=== PATIENT | male | born 1950 | race Caucasian/White ===

== ENCOUNTER → 2017-03-09 | Outpatient (CLI) | payer MEDICARE, MEDICAID ==
--- NOTE | 2017-03-09 10:25 | RADIOLOGY REPORT (SQ) ---
EXAM DESCRIPTION: CT LUNG CANCER SCREENING COMPLETED DATE/TIME: 03/09/2017 8:51 am REASON FOR STUDY: Z12.2 ENCOUNTER FOR SCREENING FOR MALIGNANT NEOPLASM OF RESPIRATORY ORGANS Z00.01 ENCOUNTER FOR GENERAL ADULT MEDICAL EXAM W ABNORMAL F J44.9 CHRONIC OBSTRUCTIVE PULMONARY DISEASE, UNSPECIFIED Z12.2 ENCNTR SCREEN FOR MALIGNANT NEOPLASM OF RESPIRATORY OR Has the patient had a Chest CT scan within the past year? No Was the patient offered tobacco cessation counseling? Yes Was the patient engaged in shared decision making for this test? Yes Does the patient have signs or symptoms of Lung Cancer? No Is the patient a smoker? Yes How many packs per year? 365 How many years since quitting smoking? Not applicable Patients age: 66 COMPARISON: Prior CT chest exams 03/03/2009, 10/04/2011, 04/20/2014, 08/11/2014, 06/14/2015 TECHNIQUE: Low Dose CT scan performed of the chest without intravenous contrast for purposes of scre ening for lung cancer. Images reviewed with lung, soft tissue and bone windows. Reconstructed coron al and sagittal MPR images reviewed. All images stored on PACS. All CT scanners at this facility use dose modulation, iterative reconstruction, and/or weight based d osing when appropriate to reduce radiation dose to as low as reasonably achievable (ALARA). [facility]: Dose Right [facility]: CareDose [facility]: Dose Right [facility]: Teradose 4D [facility]: [employer] RADIATION DOSE: Up-to-date CT equipment and radiation dose reduction techniques were employed. CTDIv ol: 2.1 mGy. DLP: 92 mGy-cm. mGy. . LIMITATIONS: No technical limitations. FINDINGS: LUNG NODULES: There is biapical pleural-parenchymal scarring, stable compared to studies dating back to 2009. On axial image 141/598, of 1.6 x 0.7 cm solid and alveolar density is present which is bandlike scarr ing on coronal image 58, this finding is similar compared to studies dating back to 2013. REMAINING LUNGS AND PLEURA: No pleural effusions or calcifications. No pneumothorax. Advanced c hanges of obstructive lung disease with enlarged airspaces most numerous in the upper lobes bilateral ly. HILAR AND MEDIASTINAL STRUCTURES: No identified masses. No abnormal nodes. HEART AND VASCULAR STRUCTURES: No aortic aneurysm. No pericardial effusion. No cardiac devices. CORONARY ARTERY CALCIFICATIONS: No significant calcifications. UPPER ABDOMEN, THYROID, BONES, OTHER SOFT TISSUES: No significant findings. IMPRESSION: BENIGN FINDINGS IN THE LUNGS. Obstructive lung disease LUNGRADS: LUNGRADS: 2 BENIGN APPEARANCE OR BEHAVIOR. NODULES WITH A VERY LOW LIKELIHOOD OF BECOMING A CLINICALLY ACTIVE CANCER DUE TO SIZE OR LACK OF GROWTH. MODIFIER: NONE. RECOMMENDATION: Continue annual screening with LDCT in 12 months. COMMENT: CRITERIA: Solid nodule(s): < 6 mm; new < 4 mm. Part solid nodule(s): < 6 mm total diameter on baseline screening. Non solid nodule(s) (GGN): < 20 mm OR ? 20 and unchanged or slowly growing. Category 3 or 4 modules unchanged for ? 3 months. TECHNICAL DOCUMENTATION: JOB ID: [id number] Quality ID # [id number]: Final reports with documentation of one or more dose reduction techniques (e.g., Au tomated exposure control, adjustment of the mA and/or kV according to patient size, use of iterative reconstruction technique) 2010 [employer]
== END ==
LOC: RAD 08:23
PROVIDERS: ATTEND Internal Medicine
DX: Z12.2 Encounter for screening for malignant neoplasm of respiratory organs (principal); F17.218 Nicotine dependence, cigarettes, with other nicotine-induced disorders
CPT/HCPCS: G0297

== ENCOUNTER → 2018-05-17 | Outpatient (CLI) | payer MEDICARE, MEDICAID ==
--- NOTE | 2018-05-17 17:02 | RADIOLOGY REPORT (SQ) ---
EXAM DESCRIPTION: FOOT BILATERAL 2 VIEWS COMPLETED DATE/TIME: 05/17/2018 2:01 pm REASON FOR STUDY: BILATERAL FOOT PAIN M79.671 PAIN IN RIGHT FOOT COMPARISON: None. NUMBER OF VIEWS: Two views. TECHNIQUE: AP and lateral radiographic images acquired of the right and left foot. LIMITATIONS: None. FINDINGS: MINERALIZATION: Normal. BONES: No acute fracture or dislocation. No worrisome bone lesions. JOINTS: Marked degenerative joint changes in the right 1st metatarsal-phalangeal joint. SOFT TISSUES: No soft tissue swelling. No foreign body. OTHER: No other significant finding. IMPRESSION: Degenerative joint disease. No acute findings in either foot. TECHNICAL DOCUMENTATION: JOB ID: [id number] [employer]- All Rights Reserved Reading location - IP/workstation name: [email or web address]
== END ==
LOC: OD 13:42
PROVIDERS: ATTEND Internal Medicine
DX: M79.671 Pain in right foot (principal); M79.672 Pain in left foot

== ENCOUNTER 2019-01-12 06:28 | Emergency (ER) | payer MEDICARE, MEDICAID ==
[2019-01-12 07:12] LABS: ABSOLUTE EOSINOPHILS # (AUTO) 0.1 10^3/uL (0.0-0.6); ABSOLUTE LYMPHOCYTES (AUTO) 1.1 10^3/uL (0.5-4.7); ABSOLUTE MONOCYTES (AUTO) 1.2 10^3/uL (0.1-1.4); ABSOLUTE NEUT (AUTO) 8.6 10^3/uL (1.7-8.2); BASOPHILS % (AUTO) 0.2 % (0-2); EOSINOPHILS % (AUTO) 0.6 % (0-6); HEMATOCRIT 30.7 % (37.9-51.0); HEMOGLOBIN 10.5 g/dL (13.5-17.0); LYMPHOCYTES % (AUTO) 10.1 % (13-45); MEAN CORPUSCULAR HEMOGLOBIN 32.3 pg (27.0-33.4); MEAN CORPUSCULAR HGB CONC 34.1 g/dL (32.0-36.0); MEAN CORPUSCULAR VOLUME 95 fl (80-97); MONOCYTES % (AUTO) 10.8 % (3-13); PLATELET COUNT 187 10^3/uL (150-450); RED BLOOD COUNT 3.24 10^6/uL (4.35-5.55); RED CELL DISTRIBUTION WIDTH 16.3 % (11.5-14.0); SEGMENTED NEUTROPHILS % (AUTO) 78.3 % (42-78); TOTAL CELLS COUNTED % (AUTO) 100 %; WHITE BLOOD COUNT 10.9 10^3/uL (4.0-10.5)
[2019-01-12 07:28] LABS: ALBUMIN 3.9 g/dL (3.5-5.0); ALKALINE PHOSPHATASE 88 U/L (38-126); ANION GAP 10 (5-19); ASPARTATE AMINO TRANSFERASE 19 U/L (17-59); BLOOD UREA NITROGEN 23 mg/dL (7-20); CALCIUM 9.7 mg/dL (8.4-10.2); CARBON DIOXIDE 27 mmol/L (22-30); CHLORIDE 102 mmol/L (98-107); CREATINE KINASE 110 U/L (55-170); GLUCOSE 128 mg/dL (75-110); TOTAL PROTEIN 6.9 g/dL (6.3-8.2)
[2019-01-12 07:32] LABS: BILIRUBIN,TOTAL < 0.1 mg/dL (0.2-1.3)
--- NOTE | 2019-01-12 07:59 | ER Document Report ---
Entered by DAISY NEWMAN SCRIBE 01/12/19 0656 Acting as scribe for:DEBI TAYLOR MD ED GI/ - General Chief Complaint: Abdominal Pain Stated Complaint: ABDOMINAL PAIN Time Seen by Provider: 01/12/19 06:43 Primary Care Provider: URVASHI RICE MD [Primary Care Provider] - Follow up in 3-5 days Mode of Arrival: Ambulatory Information source: Patient Notes: Patient is a 68 year old male that presents to the emergency department today with complaints of abdominal pain and low back pain since last night. Patient reports being unable to sleep last night stating he was "up and down" all night secondary to pain. Patient filled a prescription for #20 4mg Dilaudid on 01/10/2019 for his chronic pain. Patient has chronic arthritic pain which she states is different from the pain he has been having, although he states he got this prescription from his PCP for the pain that he is being seen for today. Patient states that this pain only began yesterday. He also complains of pain in his low back, that is not present now, but occurs when he lays down at night. Patient is a poor historian, history is confusing, and difficult to obtain. TRAVEL OUTSIDE OF THE [place] IN LAST 30 DAYS: No - Related Data Allergies/Adverse Reactions: Sulfa (Sulfonamide Antibiotics) Allergy (Verified 01/12/19 06:37) Past Medical History - General Information source: Patient - Social History Smoking Status: Former Smoker Cigarette use (# per day): No Frequency of alcohol use: None Drug Abuse: None Lives with: Family Family History: Reviewed & Not Pertinent Patient has suicidal ideation: No Patient has homicidal ideation: No - Past Medical History Cardiac Medical History: Reports: Hx Hypertension Pulmonary Medical History: Reports: Hx COPD Renal/ Medical History: Reports: Hx Kidney Stones Musculoskeletal Medical History: Reports Hx Arthritis - Chronic pain, takes dilaudid - Immunizations Hx Diphtheria, Pertussis, Tetanus Vaccination: Yes Review of Systems - Review of Systems Constitutional: No symptoms reported EENT: No symptoms reported Cardiovascular: No symptoms reported Respiratory: No symptoms reported Gastrointestinal: See HPI, Abdominal pain Genitourinary: No symptoms reported Male Genitourinary: No symptoms reported Musculoskeletal: See HPI, Back pain Skin: No symptoms reported Hematologic/Lymphatic: No symptoms reported Neurological/Psychological: No symptoms reported -: Yes All other systems reviewed and negative Physical Exam - Vital signs Vitals: Temp Pulse Resp BP Pulse Ox 97.9 F 109 H 27 H 214/92 H 94 01/12/19 06:29 01/12/19 06:29 01/12/19 06:29 01/12/19 06:29 01/12/19 06:29 - Notes Notes: Physical Exam: General: Alert. HEENT: Normocephalic. Atraumatic. PERRL. Extraocular movements intact. Oropharynx clear. Neck: Supple. Non-tender. Respiratory: No respiratory distress. Clear and equal breath sounds bilaterally. Cardiovascular: Regular rate and rhythm. Abdominal: Right lower quadrant tenderness with palpation. No distension. Normal Bowel Sounds. Back: No gross abnormalities. Extremities: Moves all four extremities. Upper extremities: Normal inspection. Normal ROM. Lower extremities: Normal inspection. No edema. Normal ROM. Neurological: Normal cognition. AAOx4. Normal speech. Intention tremor. Psychological: Normal affect. Normal Mood. Skin: Warm. Dry. Normal color. Course - Re-evaluation Re-evalutation: 01/12/19 13:31 I did discuss the patient's case with Dr. Rice. He will see him in the office next week and see about adding something such as Amitiza if mag citrate and MiraLAX does not work. He was told about the slowly enlarging infrarenal AAA and he will follow this. - Vital Signs Vital signs: Temp Pulse Resp BP Pulse Ox 97.9 F 109 H 18 160/70 H 93 01/12/19 06:29 01/12/19 06:29 01/12/19 13:01 01/12/19 13:00 01/12/19 13:01 - Laboratory Result Diagrams: 01/12/19 06:59 01/12/19 06:59 Laboratory results interpreted by me: 01/12/19 01/12/19 06:59 06:59 WBC 10.9 H RBC 3.24 L Hgb 10.5 L Hct 30.7 L RDW 16.3 H Lymph % (Auto) 10.1 L Absolute Neuts (auto) 8.6 H Seg Neutrophils % 78.3 H BUN 23 H Glucose 128 H Total Bilirubin < 0.1 L - Diagnostic Test Radiology reviewed: Image reviewed, Reports reviewed - AAS shows Constipation. CT scan with IV contrast shows infrarenal abdominal aortic aneurysm that has progressed since 2019, now just over 4 cm. Right distal ureteral calculus less than 4 mm without hydronephrosis. Numerous bladder calcifications. Discharge - Discharge Clinical Impression: Right lower quadrant abdominal pain, Aneurysm of infrarenal abdominal aorta Constipation Qualifiers: Constipation type: unspecified constipation type Qualified Code(s): K59.00 - Constipation, unspecified High blood pressure Qualifiers: Hypertension type: essential hypertension Qualified Code(s): I10 - Essential (primary) hypertension Condition: Stable Disposition: HOME, SELF-CARE Additional Instructions: Abdominal Pain There are many causes of abdominal pain. Pain can mean a serious problem requiring surgery (such as appendicitis). It can also be an innocent problem t hat goes away on its own (such as a viral infection). Often, time must pass to determine the cause of pain. The physician does not feel that hospitalization is necessary, at present. Things may change within the next 24 hours. Call the doctor or come back for re- examination if any problems occur, such as: (1) Pain that becomes more severe, steady, or becomes concentrated in one specific area. Also, pain that is more severe with movement or coughing. (2) Vomiting that persists or becomes more frequent. (3) Blood in the vomitus, urine, or bowel movements. Blood in the stool may have a tarry or black appearance. (4) Shaking chills or fever greater than 100 degrees F. (5) The abdomen becomes more distended or swollen. (6) Bowel movements cease. (7) Failure to improve as expected. Constipation Constipation is a common problem. It is especially likely as you get older. Constipation is a common cause of abdominal pain, but sometimes causes no symptoms at all. Causes of constipation include certain medications, dehydration, diets, inactivity, and low-fiber intake. Rarely, it can be a symptom of underlying disease. The physician has evaluated you for this. Avoid constipation by eating a diet high in fiber, fruits, and vegetables. Drink plenty of liquids. Get regular exercise. If possible, avoid constipating medications. Take MiraLAX once every day. Drink plenty of fluids throughout the day in the evening. Be sure to take your blood pressure medication every day. Your blood pressure was quite high when you came to the emergency room today. Follow-up with Dr. Rice on Monday for recheck if you have not started moving her bowels. RETURN TO THE EMERGENCY ROOM IF ANY NEW OR WORSENING SYMPTOMS. Referrals: URVASHI RICE MD [Primary Care Provider] - Follow up in 3-5 days Scribe Attestation: 01/12/19 07:43 I personally performed the services described in the documentation, reviewed and edited the documentation which was dictated to the scribe in my presence, and it accurately records my words and actions. I personally performed the services described in the documentation, reviewed and edited the documentation which was dictated to the scribe in my presence, and it accurately records my words and actions.
[2019-01-12 08:31] LABS: AMORPHOUS SEDIMENT,URINE TRACE /HPF; APPEARANCE,URINE CLOUDY; BILIRUBIN,URINE NEGATIVE (NEGATIVE); CALCIUM OXALATE CRYSTALS,URINE RARE /HPF; COLOR,URINE YELLOW; GLUCOSE, URINE NEGATIVE (NEGATIVE); KETONES,URINE NEGATIVE (NEGATIVE); LEUKOCYTE ESTERASE,URINE NEGATIVE (NEGATIVE); NITRITE,URINE NEGATIVE (NEGATIVE); PROTEIN,URINE NEGATIVE (NEGATIVE); URINE SPECIFIC GRAVITY 1.015; UROBILINOGEN,URINE NEGATIVE mg/dL (<2.0)
--- NOTE | 2019-01-12 10:19 | RADIOLOGY REPORT (SQ) ---
EXAM DESCRIPTION: ACUTE ABDOMEN SERIES COMPLETED DATE/TIME: 01/12/2019 10:03 am REASON FOR STUDY: RLQ abd pain, possible constipation COMPARISON: None. NUMBER OF VIEWS: Three views. TECHNIQUE: Frontal chest, supine abdomen and upright/decubitus abdomen radiographic images acquired. LIMITATIONS: None. FINDINGS: CHEST: Probable mild areas of scarring. No acute infiltrate. No abnormal gas collections . Port in place. FREE AIR: None. No abnormal gas collections. BOWEL GAS PATTERN: Mild gaseous distention with a large amount of stool in the colon. Overall nonobs tructive pattern. CALCIFICATIONS: Probable phleboliths and other benign calcifications in the pelvis. HARDWARE: None in the abdomen. SOFT TISSUES: No gross mass or suggestion of organomegaly. BONES: No acute fracture. No worrisome bone lesions. OTHER: No other significant finding. IMPRESSION: NO RADIOGRAPHIC EVIDENCE FOR ACUTE ABDOMINAL DISEASE. TECHNICAL DOCUMENTATION: JOB ID: [id number] [employer]- All Rights Reserved Reading location - IP/workstation name: [email or web address]
[2019-01-12] MEDS ORDERED: ONDANSETRON HCL INJ/PF 4 MG/2 ML SDV IV ONE (10:25)
[2019-01-12] MEDS ORDERED: MAGNESIUM CITRATE 296 ML BOTTLE PO ONE (10:25)
--- NOTE | 2019-01-12 11:29 | RADIOLOGY REPORT (SQ) ---
EXAM DESCRIPTION: CT ABD/PELVIS WITH IV ONLY COMPLETED DATE/TIME: 01/12/2019 11:11 am REASON FOR STUDY: RLQ abd pain COMPARISON: 2014 CT abdomen. TECHNIQUE: CT scan of the abdomen and pelvis performed using helical scanning technique with dynamic intravenous contrast injection. No oral contrast. Images reviewed with lung, soft tissue, and bone windows. Reconstructed coronal and sagittal MPR images reviewed. Delayed images for evaluation of the urinary system also acquired. All images stored on PACS. All CT scanners at this facility use dose modulation, iterative reconstruction, and/or weight based d osing when appropriate to reduce radiation dose to as low as reasonably achievable (ALARA). [facility]: Dose Right [facility]: CareDose [facility]: Dose Right [facility]: Teradose 4D [facility]: [employer] CONTRAST TYPE AND DOSE: contrast/concentration: Isovue 350.00 mg/ml; Total Contrast Delivered: 75.0 ml; Total Saline Delivered: 69.0 ml RENAL FUNCTION: GFR > 60. RADIATION DOSE: CT Rad equipment meets quality standard of care and radiation dose reduction techniq ues were employed. CTDIvol: 5.7 - 7.3 mGy. DLP: 690 mGy-cm.. LIMITATIONS: None. FINDINGS: LOWER CHEST: No significant findings. No nodules or infiltrates. LIVER: Normal size. No masses. No dilated ducts. SPLEEN: Normal size. No focal lesions. PANCREAS: No masses. No significant calcifications. No adjacent inflammation or peripancreatic fluid collections. Pancreatic duct not dilated. GALLBLADDER: No identified stones by CT criteria. No inflammatory changes to suggest cholecystitis. ADRENAL GLANDS: No significant masses or asymmetry. RIGHT KIDNEY AND URETER: Renal cysts without obstruction or significant stones. LEFT KIDNEY AND URETER: Renal cysts. No evidence of obstruction or significant stones. Variable den sity in some of the cysts. AORTA AND VESSELS: Infrarenal saccular left aneurysm just above bifurcation. Maximal transverse dime nsion here is just over 4 cm with irregular ulceration within soft tissue plaque laterally. Chronic but progressive in size and complexity compared to 2014 Heavy calcification in the iliac arteries. G ood flow in the mesenteric and renal arteries. No venous clot. RETROPERITONEUM: No retroperitoneal adenopathy, hemorrhage or masses. BOWEL AND PERITONEAL CAVITY: No masses or inflammatory changes. No free fluid or peritoneal masses. APPENDIX: Not visualized. PELVIS: Heavily calcified prostate. Numerous tiny dependent bladder stones. At least 1 calcificatio n in the distal right ureter just proximal to the UVJ. This measures less than 4 mm. Heavily calcif ied prostate. ABDOMINAL WALL: No masses. No hernias. BONES: Osteopenia and spondylosis. OTHER: No other significant finding. IMPRESSION: 1. Infrarenal abdominal aortic aneurysm has progressed since 2013. This now measures just over 4 cm. 2. Distal right ureteral calculus, less than 4 mm. No associated hydronephrosis. 3. Numerous bladder calcifications are present. 4. Other findings as above. AAA Size: Follow-up Recommendation 4.0-4.4 cm Every 12 months, vascular consultation recommended *Based upon the Society for Vascular Surgery Guidelines: J Vasc Surg. 2009 Oct;50(4 Suppl):S2-49 *For aortas of maximum diameter of 2.6-2.9 cm meeting the criteria for AAA (?1.5 x proximal normal se gment) TECHNICAL DOCUMENTATION: JOB ID: [id number] Quality ID # [id number]: Final reports with documentation of one or more dose reduction techniques (e.g., Au tomated exposure control, adjustment of the mA and/or kV according to patient size, use of iterative reconstruction technique) 2010 [employer]- All Rights Reserved Reading location - IP/workstation name: [email or web address]
[2019-01-12 13:57] VITALS: BP 164/86
== END 2019-01-12 13:40 | disposition home or self-care (01) ==
LOC: ER 06:28
DX: I71.4 Abdominal aortic aneurysm, without rupture (principal); K59.00 Constipation, unspecified; N20.1 Calculus of ureter; N32.89 Other specified disorders of bladder; R10.31 Right lower quadrant pain; R10.813 Right lower quadrant abdominal tenderness; M54.5 Low back pain; M19.90 Unspecified osteoarthritis, unspecified site; I10 Essential (primary) hypertension; J44.9 Chronic obstructive pulmonary disease, unspecified; Z88.2 Allergy status to sulfonamides; Z87.891 Personal history of nicotine dependence
CPT/HCPCS: 99284; 96374; 36415; 87040; 82550; 83735; 85025; 80053; 81001; 84484; 83605; 74022; 74177; J3490; J2405

== ENCOUNTER 2019-01-18 21:45 | Emergency (ER) | payer MEDICARE, MEDICAID ==
--- NOTE | 2019-01-18 22:40 | ER Document Report ---
ED Medical Screen (RME) - General Chief Complaint: Abdominal Pain >50 Stated Complaint: ABDOMINAL PAIN,NAUSEA,VOMITTING Time Seen by Provider: 01/18/19 22:27 Primary Care Provider: URVASHI RICE MD [Primary Care Provider] - Follow up as needed Mode of Arrival: Ambulatory Information source: Patient Notes: Patient presents emergency department with complaints of left inguinal hernia pain. Patient reports he has been up all night yesterday due to the pain. Recently was treated here for constipation also has history of aneurysm. Denies fever vomiting diarrhea reports decreased urinary output. I have greeted and performed a rapid initial assessment of this patient. A comprehensive ED assessment and evaluation of the patient, analysis of test results and completion of the medical decision making process will be conducted by additional ED providers. Dictation of this chart was performed using voice recognition software; therefore, there may be some unintended grammatical errors. TRAVEL OUTSIDE OF THE [place] IN LAST 30 DAYS: No - Related Data Allergies/Adverse Reactions: Sulfa (Sulfonamide Antibiotics) Allergy (Verified 01/12/19 06:37) Past Medical History - Past Medical History Cardiac Medical History: Reports: Hx Hypertension Pulmonary Medical History: Reports: Hx COPD Renal/ Medical History: Reports: Hx Kidney Stones Musculoskeltal Medical History: Reports Hx Arthritis - Chronic pain, takes dilaudid - Immunizations Hx Diphtheria, Pertussis, Tetanus Vaccination: Yes Physical Exam - Vital signs Vitals: Temp Pulse Resp BP Pulse Ox 97.4 F 98 18 121/59 L 96 01/18/19 21:51 01/18/19 21:51 01/18/19 21:51 01/18/19 21:51 01/18/19 21:51 Course - Vital Signs Vital signs: Temp Pulse Resp BP Pulse Ox 97.4 F 98 18 121/59 L 96 01/18/19 21:51 01/18/19 21:51 01/18/19 21:51 01/18/19 21:51 01/18/19 21:51 Doctor's Discharge - Discharge Referrals: URVASHI RICE MD [Primary Care Provider] - Follow up as needed
[2019-01-18 23:04] LABS: ABSOLUTE BASOPHILS # (AUTO) 0.1 10^3/uL (0.0-0.2); ABSOLUTE EOSINOPHILS # (AUTO) 0.1 10^3/uL (0.0-0.6); ABSOLUTE LYMPHOCYTES (AUTO) 1.1 10^3/uL (0.5-4.7); ABSOLUTE MONOCYTES (AUTO) 1.2 10^3/uL (0.1-1.4); ABSOLUTE NEUT (AUTO) 7.4 10^3/uL (1.7-8.2); BASOPHILS % (AUTO) 1.4 % (0-2); EOSINOPHILS % (AUTO) 0.8 % (0-6); HEMATOCRIT 31.6 % (37.9-51.0); HEMOGLOBIN 10.5 g/dL (13.5-17.0); LYMPHOCYTES % (AUTO) 11.3 % (13-45); MEAN CORPUSCULAR HEMOGLOBIN 31.2 pg (27.0-33.4); MEAN CORPUSCULAR HGB CONC 33.3 g/dL (32.0-36.0); MEAN CORPUSCULAR VOLUME 94 fl (80-97); MONOCYTES % (AUTO) 12.5 % (3-13); PLATELET COUNT 270 10^3/uL (150-450); RED BLOOD COUNT 3.37 10^6/uL (4.35-5.55); RED CELL DISTRIBUTION WIDTH 16.2 % (11.5-14.0); TOTAL CELLS COUNTED % (AUTO) 100 %
[2019-01-18] MEDS ORDERED: ONDANSETRON HCL INJ/PF 4 MG/2 ML SDV IV ONE (23:04)
[2019-01-18] MEDS ORDERED: NORMAL SALINE 500 ML IV ONE (23:04)
[2019-01-18 23:06] LABS: APPEARANCE,URINE CLEAR; BILIRUBIN,URINE NEGATIVE (NEGATIVE); COLOR,URINE YELLOW; GLUCOSE, URINE NEGATIVE (NEGATIVE); KETONES,URINE NEGATIVE (NEGATIVE); LEUKOCYTE ESTERASE,URINE NEGATIVE (NEGATIVE); NITRITE,URINE NEGATIVE (NEGATIVE); PROTEIN,URINE NEGATIVE (NEGATIVE); UROBILINOGEN,URINE NEGATIVE mg/dL (<2.0)
--- NOTE | 2019-01-18 23:11 | ER Document Report ---
ED GI/ - General Chief Complaint: Abdominal Pain >50 Stated Complaint: ABDOMINAL PAIN,NAUSEA,VOMITTING Time Seen by Provider: 01/18/19 22:27 Primary Care Provider: URVASHI RICE MD [Primary Care Provider] - Follow up as needed Mode of Arrival: Ambulatory Information source: Patient, Relative Notes: Patient complains of left lower quadrant and left inguinal pain starting earlier today. He recently had a right inguinal hernia removed. He was last seen by a physician approximately a week ago. He apparently has a history of an abdominal aneurysm. Positive nausea and vomiting. Denies trauma. Denies chest pain or shortness of breath. No urinary complaints. No rashes. No other complaints. Patient has a history of metastatic bladder cancer and is due to have a PET scan on Monday. TRAVEL OUTSIDE OF THE [place] IN LAST 30 DAYS: No - Related Data Allergies/Adverse Reactions: Sulfa (Sulfonamide Antibiotics) Allergy (Verified 01/12/19 06:37) Past Medical History - General Information source: Patient - Social History Smoking Status: Current Every Day Smoker Family History: Reviewed & Not Pertinent Patient has suicidal ideation: No Patient has homicidal ideation: No - Past Medical History Cardiac Medical History: Reports: Hx Hypertension Pulmonary Medical History: Reports: Hx COPD Renal/ Medical History: Reports: Hx Kidney Stones Malignancy Medical History: Reports Other - METASTATIC BLADDER CANCER Musculoskeletal Medical History: Reports Hx Arthritis - Chronic pain, takes dilaudid - Immunizations Hx Diphtheria, Pertussis, Tetanus Vaccination: Yes Review of Systems - Review of Systems Constitutional: denies: Chills, Fever -: Yes All other systems reviewed and negative Physical Exam - Vital signs Vitals: Temp Pulse Resp BP Pulse Ox 97.4 F 98 18 121/59 L 96 01/18/19 21:51 01/18/19 21:51 01/18/19 21:51 01/18/19 21:51 01/18/19 21:51 Interpretation: Normal - General General appearance: Appears well, Alert - HEENT Head: Normocephalic, Atraumatic Eyes: Normal Pupils: PERRL Mucous membranes: Dry - Respiratory Respiratory status: No respiratory distress Chest status: Nontender Breath sounds: Normal Chest palpation: Normal - Cardiovascular Rhythm: Regular Heart sounds: Normal auscultation Murmur: No - Abdominal Inspection: Normal Distension: No distension Tenderness: Tender - LLQ. No: Guarding, Rebound Organomegaly: No organomegaly - Back Back: Normal, Nontender - Extremities General upper extremity: Normal inspection, Nontender, Normal color, Normal ROM, Normal temperature General lower extremity: Normal inspection, Nontender, Normal color, Normal ROM, Normal temperature, Normal weight bearing. No: Concetta's sign - Neurological Neuro grossly intact: Yes Cognition: Normal Orientation: AAOx4 [place] Coma Scale Eye Opening: Spontaneous [place] Coma Scale Verbal: Oriented [place] Coma Scale Motor: Obeys Commands [place] Coma Scale Total: 15 Speech: Normal Motor strength normal: LUE, RUE, LLE, RLE Sensory: Normal - Psychological Associated symptoms: Normal affect, Normal mood - Skin Skin Temperature: Warm Skin Moisture: Dry Skin Color: Normal Course - Re-evaluation Re-evalutation: 01/19/19 01:21 Patient feels better on reevaluation and wants to go home. He promises to return at once if worse or new symptoms. - Vital Signs Vital signs: Temp Pulse Resp BP Pulse Ox 97.7 F 81 20 144/73 H 90 L 01/19/19 00:43 01/19/19 00:43 01/19/19 00:43 01/19/19 00:43 01/19/19 00:43 - Laboratory Result Diagrams: 01/18/19 22:51 01/18/19 22:51 Laboratory results interpreted by me: 01/18/19 01/18/19 22:51 22:51 RBC 3.37 L Hgb 10.5 L Hct 31.6 L RDW 16.2 H Lymph % (Auto) 11.3 L Sodium 136.3 L Glucose 114 H - Diagnostic Test Radiology reviewed: Image reviewed, Reports reviewed Discharge - Discharge Clinical Impression: Metastatic cancer Abdominal pain Qualifiers: Abdominal location: left lower quadrant Qualified Code(s): R10.32 - Left lower quadrant pain Condition: Stable Disposition: HOME, SELF-CARE Instructions: Abdominal Pain ([facility]) Additional Instructions: Return at once if worse or new symptoms. Follow-up with your doctor on Monday as scheduled for PET scan. Referrals: URVASHI RICE MD [Primary Care Provider] - Follow up as needed
[2019-01-18 23:21] LABS: ALBUMIN 3.9 g/dL (3.5-5.0); ALKALINE PHOSPHATASE 79 U/L (38-126); ANION GAP 9 (5-19); ASPARTATE AMINO TRANSFERASE 23 U/L (17-59); BILIRUBIN,DIRECT 0.2 mg/dL (0.0-0.4); BILIRUBIN,TOTAL 0.2 mg/dL (0.2-1.3); BLOOD UREA NITROGEN 14 mg/dL (7-20); CALCIUM 9.3 mg/dL (8.4-10.2); CARBON DIOXIDE 27 mmol/L (22-30); CHLORIDE 100 mmol/L (98-107); GLUCOSE 114 mg/dL (75-110); POTASSIUM 4.2 mmol/L (3.6-5.0); TOTAL PROTEIN 7.1 g/dL (6.3-8.2)
--- NOTE | 2019-01-18 23:52 | RADIOLOGY REPORT (SQ) ---
EXAM DESCRIPTION: US PELVIS LIMITED COMPLETED DATE/TME: 01/18/2019 22:37 CLINICAL HISTORY: 68 years, Male, INGUINAL HERNIA COMPARISON: None. TECHNIQUE: Transverse and longitudinal sonographic images of the left inguinal region LIMITATIONS: None. FINDINGS: No abnormal fluid collections. No sonographic evidence for hernia, however correlate with physical exam. No soft tissue masses. IMPRESSION: Unremarkable exam copyright 2010 [id number]- All Rights Reserved
--- NOTE | 2019-01-19 00:16 | RADIOLOGY REPORT (SQ) ---
EXAM DESCRIPTION: CT ABDOMEN PELVIS WITHOUT IV CONTRAST COMPLETED DATE/TME: 01/18/2019 23:01 CLINICAL HISTORY: 68 years, Male, ABDOMINAL PAIN COMPARISON: 01/12/2019 CT TECHNIQUE: 287 Images stored on PACS. All CT scanners at this facility use dose modulation, iterative reconstruction, and/or weight based dosing when appropriate to reduce radiation dose to as low as reasonably achievable (ALARA). [facility]: Dose Right [facility]: CareDose [facility]: Dose Right [facility]: Teradose 4D [facility]: Smart [place] LIMITATIONS: None. FINDINGS: Limited evaluation of the lung bases is unremarkable. Osseous structures are grossly intact. The visualized liver, spleen, adrenal glands, pancreas are unremarkable. The gallbladder is present. Multiple bilateral renal cysts. Grossly stable infrarenal abdominal aortic aneurysm measuring 4.2 x 3.8 cm. Intimal calcifications, some of which are displaced medially, unchanged. Heavy atheromatous change of the common iliac arteries bilaterally. Large amount of stool in the colon. Coarse calcifications in the pelvis, primarily of the prostate. However, there are some calcifications associated with the urinary bladder/right UVJ, as before. No free air or free fluid. IMPRESSION: No significant change from the prior exam 01/12/2019. Multiple calcifications of the urinary bladder and right UVJ without hydronephrosis. Bilateral renal cysts. Stable infrarenal abdominal aortic aneurysm with maximal diameter 4.2 x 3.8 cm. Recommend follow-up every 12 months, as per below. For management of fusiform aneurysmal abdominal aortas: <2.6 cm aorta, no follow-up is recommended. 2.6-2.9 cm aorta, recommend follow-up every 5 years for aortas meeting the criteria for AAA (>1.5 x proximal normal segment; no f/u if < 1.5 x proximal normal segment; no f/u for aortas < 2.6 cm). 3.0-3.4 cm AAA, recommend follow-up every 3 years. 3.5-3.9 cm AAA, recommend follow-up every 2 years. 4.0-4.4 cm AAA, recommend follow-up every 12 months and recommend vascular consultation. 4.5-5.4 cm AAA, recommend follow-up every 6 months and recommend vascular consultation. >5.5 cm AAA, recommend referral to vascular specialist. For management of saccular abdominal aortic aneurysms of any size, recommend vascular consultation. Note: for AAA enlargement of >0.5 cm in 6 months or >1 cm in 1 year, recommend vascular consultation. References: J Am Michele Radiol 2013; 10(10):789-794; J Vasc Surg. 2018; 67:2-77 TECHNICAL DOCUMENTATION: Quality ID # [id number]: Final reports with documentation of one or more dose reduction techniques (e.g., Automated exposure control, adjustment of the mA and/or kV according to patient size, use of iterative reconstruction technique) copyright 2011 [employer]- All Rights Reserved
[2019-01-19 01:14] VITALS: BP 144/73
== END 2019-01-19 01:37 | disposition home or self-care (01) ==
LOC: ER 21:45
DX: C67.9 Malignant neoplasm of bladder, unspecified (principal); R10.32 Left lower quadrant pain; R11.2 Nausea with vomiting, unspecified; F17.200 Nicotine dependence, unspecified, uncomplicated; I10 Essential (primary) hypertension; J44.9 Chronic obstructive pulmonary disease, unspecified
CPT/HCPCS: 36415; 83690; 85025; 80053; 81001; 76857; 74176; J2405; J7040; 96361; 96374; 99284